=== PATIENT | male | born 1960 | race Caucasian/White ===

== ENCOUNTER 2019-10-10 10:25 | Emergency (ER) | payer BC ==
--- NOTE | 2019-10-10 11:06 | RADIOLOGY REPORT (SQ) ---
EXAM DESCRIPTION: CHEST SINGLE VIEW IMAGES COMPLETED DATE/TIME: 10/10/2019 10:57 am REASON FOR STUDY: sob COMPARISON: None. EXAM PARAMETERS: NUMBER OF VIEWS: One view. TECHNIQUE: Single frontal radiographic view of the chest acquired. RADIATION DOSE: NA LIMITATIONS: None. FINDINGS: LUNGS AND PLEURA: There is minimal linear atelectasis in the left base. Lung ansari are o therwise clear. No effusions or pneumothorax. MEDIASTINUM AND HILAR STRUCTURES: No masses. Contour normal. HEART AND VASCULAR STRUCTURES: Heart normal in size. Normal vasculature. BONES: No acute findings. HARDWARE: None in the chest. OTHER: No other significant finding. IMPRESSION: No significant findings in the chest. TECHNICAL DOCUMENTATION: JOB ID: [id number] 2010 [employer]- All Rights Reserved Reading location - IP/workstation name: [email or web address]
[2019-10-10 11:13] LABS: ABSOLUTE BASOPHILS # (AUTO) 0.2 10^3/uL (0.0-0.2); ABSOLUTE EOSINOPHILS # (AUTO) 0.1 10^3/uL (0.0-0.6); ABSOLUTE LYMPHOCYTES (AUTO) 1.8 10^3/uL (0.5-4.7); ABSOLUTE MONOCYTES (AUTO) 0.8 10^3/uL (0.1-1.4); ABSOLUTE NEUT (AUTO) 10.2 10^3/uL (1.7-8.2); BASOPHILS % (AUTO) 1.2 % (0-2); EOSINOPHILS % (AUTO) 0.6 % (0-6); HEMATOCRIT 39.8 % (37.9-51.0); HEMOGLOBIN 13.9 g/dL (13.5-17.0); LYMPHOCYTES % (AUTO) 13.7 % (13-45); MEAN CORPUSCULAR HEMOGLOBIN 30.4 pg (27.0-33.4); MEAN CORPUSCULAR HGB CONC 34.9 g/dL (32.0-36.0); MEAN CORPUSCULAR VOLUME 87 fl (80-97); MONOCYTES % (AUTO) 6.4 % (3-13); PLATELET COUNT 352 10^3/uL (150-450); RED BLOOD COUNT 4.57 10^6/uL (4.35-5.55); RED CELL DISTRIBUTION WIDTH 13.6 % (11.5-14.0); SEGMENTED NEUTROPHILS % (AUTO) 78.1 % (42-78); TOTAL CELLS COUNTED % (AUTO) 100 %
[2019-10-10 11:35] LABS: ALBUMIN 4.2 g/dL (3.5-5.0); ALKALINE PHOSPHATASE 86 U/L (38-126); ANION GAP 8 (5-19); ASPARTATE AMINO TRANSFERASE 21 U/L (17-59); BILIRUBIN,TOTAL 0.4 mg/dL (0.2-1.3); BLOOD UREA NITROGEN 29 mg/dL (7-20); CALCIUM 9.7 mg/dL (8.4-10.2); CARBON DIOXIDE 27 mmol/L (22-30); CHLORIDE 100 mmol/L (98-107); GLUCOSE 132 mg/dL (75-110); POTASSIUM 4.4 mmol/L (3.6-5.0); TOTAL PROTEIN 7.3 g/dL (6.3-8.2)
--- NOTE | 2019-10-10 12:23 | ER Document Report ---
ED Cardiac - General Chief Complaint: Chest Pain Stated Complaint: CHEST PAIN Time Seen by Provider: 10/10/19 10:33 Mode of Arrival: Ambulatory Information source: Patient - HPI Notes: Patient presents with chest pain. He states that started this morning. He states is located in the center of the chest and does not really radiate. He states he has some shortness of breath with it. No cough or fevers. No known coronavirus exposures. No recent travel. No past history of PEs or cardiac disease. He states he had a negative stress test "many years ago". Patient has had no vomiting or nausea. No sweating. The pain has been constant. Although it is gradually getting better. It is been a tight sensation or squeezing sensation. Nothing makes it better or worse. - Related Data Allergies/Adverse Reactions: morphine Allergy (Verified 10/10/19 12:43) Past Medical History - General Information source: Patient - Social History Smoking Status: Never Smoker Frequency of alcohol use: None Drug Abuse: None Family History: Reviewed & Not Pertinent Patient has suicidal ideation: No Patient has homicidal ideation: No - Past Medical History Cardiac Medical History: Reports: Hx Hypertension Past Surgical History: Reports: Hx Appendectomy, Hx Orthopedic Surgery - back surgery Review of Systems - Review of Systems Constitutional: denies: Chills, Fever Cardiovascular: Chest pain. denies: Palpitations Respiratory: Short of breath. denies: Cough -: Yes All other systems reviewed and negative Physical Exam - Vital signs Vitals: Temp Pulse Resp BP Pulse Ox 97.9 F 71 16 122/67 97 10/10/19 11:09 10/10/19 11:09 10/10/19 11:09 10/10/19 11:09 10/10/19 11:09 Interpretation: Normal - General General appearance: Appears well, Alert - HEENT Head: Normocephalic, Atraumatic Eyes: Normal Pupils: PERRL - Respiratory Respiratory status: No respiratory distress Chest status: Nontender Breath sounds: Normal Chest palpation: Normal - Cardiovascular Rhythm: Regular Heart sounds: Normal auscultation Murmur: No - Abdominal Inspection: Normal Distension: No distension Bowel sounds: Normal Tenderness: Nontender Organomegaly: No organomegaly - Back Back: Normal, Nontender - Extremities General upper extremity: Normal inspection, Nontender, Normal color, Normal ROM, Normal temperature General lower extremity: Normal inspection, Nontender, Normal color, Normal ROM, Normal temperature, Normal weight bearing. No: Alma's sign - Neurological Neuro grossly intact: Yes Cognition: Normal Orientation: AAOx4 Bianca Coma Scale Eye Opening: Spontaneous [place] Coma Scale Verbal: Oriented Bianca Coma Scale Motor: Obeys Commands [place] Coma Scale Total: 15 Speech: Normal Motor strength normal: LUE, RUE, LLE, RLE Sensory: Normal - Psychological Associated symptoms: Normal affect, Normal mood - Skin Skin Temperature: Warm Skin Moisture: Dry Skin Color: Normal Course - Re-evaluation Re-evalutation: 10/10/19 13:54 Patient presents with chest pain. He states the chest pain is improved now. His EKG x-ray and labs are unremarkable. He is currently awaiting a second troponin. His heart score is a 3. I have discussed the case with clinical psychologist Dr. Kyle. He says if the second troponin is negative he will arrange for a stress test tomorrow. I have turned the patient over to Dr. Lopez will follow-up on the second troponin. - Vital Signs Vital signs: Temp Pulse Resp BP Pulse Ox 97.9 F 71 16 122/67 97 10/10/19 11:09 10/10/19 11:09 10/10/19 11:09 10/10/19 11:09 10/10/19 11:09 - Laboratory Result Diagrams: 10/10/19 11:00 10/10/19 11:00 Laboratory results interpreted by me: 10/10/19 10/10/19 11:00 11:00 WBC 13.0 H Absolute Neuts (auto) 10.2 H Seg Neutrophils % 78.1 H Sodium 135.3 L BUN 29 H Glucose 132 H - Diagnostic Test Radiology reviewed: Image reviewed, Reports reviewed - EKG Interpretation by Me EKG shows normal: Sinus rhythm Rate: Normal - 67 Rhythm: NSR Voltage: Consistant with LVH Discharge - Discharge Clinical Impression: Chest pain Qualifiers: Chest pain type: unspecified Qualified Code(s): R07.9 - Chest pain, unspecified Condition: Stable Disposition: HOME, SELF-CARE
[2019-10-10 15:39] VITALS: BP 132/81
--- NOTE | 2019-10-10 21:57 | EKG REPORT ---
SEVERITY:- ABNORMAL ECG - SINUS RHYTHM LEFT VENTRICULAR HYPERTROPHY BORDERLINE T ABNORMALITIES, INFERIOR LEADS : Confirmed by: Clara Kelly MD 10-Oct-2019 21:56:23
== END 2019-10-10 17:00 | disposition home or self-care (01) ==
LOC: ER 10:25
DX: R07.9 Chest pain, unspecified (principal); R06.02 Shortness of breath; I10 Essential (primary) hypertension; Z88.6 Allergy status to analgesic agent; Z88.5 Allergy status to narcotic agent
CPT/HCPCS: 36415; 71045; 80053; 84484; 85025; 93005; 93010; 99285

== ENCOUNTER → 2019-10-11 | Outpatient (CLI) | payer BC ==
[~2019-10-11] MED LIST: REGADENOSON INJ 0.4 MG/5 ML DISP.SYRIN IV ONE
--- NOTE | 2019-10-11 10:05 | Progress Note ---
Provider Note Provider Note: The patient underwent a stress/rest, single isotope SPECT Imaging with pharmaological stress and gated SPECT imaging for evaluation of chest pain. The patient underwent infusion of regadnoson mg IV using the standard protocol. The heart rate was 61 beats per minute at baseline and increased to 92 beats during the infusion of regadenoson. The resting blood pressure was 112/60 mm/Hg and increased to 140/79 mm/Hg, which is a normal response. The patient complained of palpitations and racing heart during the procedure. The resting electrocardiogram demonstrated normal sinus rhythm and did not show ST-segment changes consistent with ischemia during stress. Myocardial perfusion imaging was performed at rest following the injection of 13.03 mCi of sestamibi. At peak pharmacolgic effect, the patient was injected with 39.8 mCi of sestamibi. Gating post-stress tomographic imaging was performed 60 minutes after stress. Findings The overall quality of the study is excellent. Raw images demonstrate no significant artifacts. Left ventricular cavity is noted to be normal on the rest and stress studies. There is no evidence of abnormal lung activity. Additionally, the right ventricle is normal. Resting SPECT images demonstrate homogeneous tracer distribution throughout the myocardium. The stress images reveal homogeneous tracer distribution throughout the myocardium. Gated SPECT imaging reveals normal myocardial thickening and wall motion. The left ventricular ejection fraction was calculated to be greater than 55 % Impression -Myocardial perfusion imaging is normal without any significant artifacts. -There is no scintigraphic evidence of ischemia or infarct. -Overall left ventricular systolic function was normal without wall motion. -There are no prior studies for comparison.
== END ==
LOC: RAD 06:37
PROVIDERS: ATTEND Internal Medicine Cardiovascular Disease
DX: R07.9 Chest pain, unspecified (principal)
CPT/HCPCS: 93017; 78452; A9500; J2785; Q9969